=== PATIENT | female | born 1985 | race Caucasian/White ===

== ENCOUNTER 2019-09-09 18:38 | Emergency (ER) | payer OTHER, SELFPAY | END 2019-09-09 19:56 | disposition home or self-care (01) | LOC: NAV ERS 18:38 | DX: S61.210A Laceration without foreign body of right index finger without damage to nail, initial encounter (principal); I10 Essential (primary) hypertension; F41.9 Anxiety disorder, unspecified; Z79.899 Other long term (current) drug therapy; E66.9 Obesity, unspecified; W26.0XXA Contact with knife, initial encounter | CPT/HCPCS: 12001 ==